=== PATIENT | female | born 1965 | race Two or more races ===

== ENCOUNTER 2020-06-11 13:43 | Inpatient (IN) | payer OTHER ==
[~2020-06-11] VITALS: Ht 167.6 cm; Wt 139.7 kg
== END 2020-06-28 18:46 | disposition home or self-care (01) | DRG 373 ==
LOC: ER 13:43 → SURH 06-12 00:58 → SEC-K 06-12 00:58 → SURG 06-12 17:01 → SEC-K 06-12 18:27 → SURH 06-12 21:42
PROVIDERS: ADMIT Surgery; ATTEND Surgery
PROC: 02HV33Z Insertion of Infusion Device into Superior Vena Cava, Percutaneous Approach (ICD-10-PCS; 2020-06-12)
PROC: 3E0436Z Introduction of Nutritional Substance into Central Vein, Percutaneous Approach (ICD-10-PCS; 2020-06-12)
PROC: BW21Y0Z Computerized Tomography (CT Scan) of Abdomen and Pelvis using Other Contrast, Unenhanced and Enhanced (ICD-10-PCS; 2020-06-12)
PROC: 0W9J30Z Drainage of Pelvic Cavity with Drainage Device, Percutaneous Approach (ICD-10-PCS; principal; 2020-06-17)
DX: K35.33 Acute appendicitis with perforation, localized peritonitis, and gangrene, with abscess (principal); B96.0 Mycoplasma pneumoniae [M. pneumoniae] as the cause of diseases classified elsewhere

== ENCOUNTER 2020-07-05 10:58 | Outpatient (CLI) | payer OTHER | END 2020-07-05 15:00 | disposition home or self-care (01) | LOC: LAB 10:58 | PROVIDERS: ATTEND Radiology Diagnostic Radiology | DX: N20.0 Calculus of kidney (principal) ==

== ENCOUNTER 2020-07-29 07:16 | Outpatient (CLI) | payer OTHER | END 2020-07-29 07:34 | disposition home or self-care (01) | LOC: TOM 07:16 | PROVIDERS: ATTEND Surgery | DX: K35.33 Acute appendicitis with perforation, localized peritonitis, and gangrene, with abscess (principal) ==

== ENCOUNTER 2020-08-20 05:50 | Day surgery (SDC) | payer OTHER | END 2020-08-20 13:25 | disposition home or self-care (01) | LOC: CIR.AMB 05:50 | PROVIDERS: ATTEND Surgery | DX: K35.33 Acute appendicitis with perforation, localized peritonitis, and gangrene, with abscess (principal); Z20.822 Contact with and (suspected) exposure to COVID-19 ==

== ENCOUNTER 2020-08-23 09:53 | Inpatient (IN) | payer OTHER ==
[~2020-08-23] VITALS: Ht 167.6 cm; Wt 65.3 kg
--- NOTE | 2020-08-23 10:21 | NUR ---
SE RECIBE PACIENTE FEMINA DE 55 ANOS DE EDAD QUE LLEGA A MOISES DE EMERGENCIAS POR DOLOR ABDOMINAL DESDE HACE 4 MOLINA. PACIENTE REFIERE FUE OPERADA EL SYDNEE 6 DE SERGO, PARASCOPIA. PACIENTE TIENE SEGUIMIENTO CON DR. JASSO. PACIENTE SE OBSEVRVA ALERTA, CONCIENTE Y ORIENTADA X3 LA MISMA AMBULA AL MOMENTO Y SE ENCUENTRA EN COMPANIA DE FAMILIAR. SE UBICA A PACIENTE EN AREA DE OBSERVACION KELLY.
--- NOTE | 2020-08-23 11:11 | NUR ---
PTE EVALUADA POR EL DR PALAFOX QUIEN [place]. MS B JORGE ORIENTA SOBRE EL MISMO, LO CUAL REFIERE ENTENDER, REALIZA PRUEBAS DE LABORATORIO Y ADMINISTRA MEDICAMENTOS KRISS ORDEN MEDICA Y SIGUIENDO MEDIDAS ASEPTICAS. CT NOTIFICADO A PERSONAL DE TURNO.
== END 2020-08-30 18:50 | disposition home or self-care (01) | DRG 862 ==
LOC: ER 09:53 → SURG 19:23 → O/R 08-30 15:25 → MEDI 08-30 15:33 → SURG 08-30 15:38
PROVIDERS: ADMIT Surgery; ATTEND Surgery
PROC: BW211ZZ Computerized Tomography (CT Scan) of Abdomen and Pelvis using Low Osmolar Contrast (ICD-10-PCS; 2020-08-23)
PROC: 0W9G30Z Drainage of Peritoneal Cavity with Drainage Device, Percutaneous Approach (ICD-10-PCS; principal; 2020-08-26)
DX: T81.43XA Infection following a procedure, organ and space surgical site, initial encounter (principal); K65.1 Peritoneal abscess